=== PATIENT | male | born 1955 | race Caucasian/White ===

== ENCOUNTER → 2023-10-05 10:36 | Outpatient (BNVA) | payer MEDICARE, OTHER, SELFPAY | PROVIDERS: Referring Provider Family Medicine; Visit Provider Anesthesiology Pain Medicine | DX: M54.16 Radiculopathy, lumbar region (principal) | CPT/HCPCS: 72110 ==

== ENCOUNTER 2023-10-24 08:22 | Outpatient (CLI) | payer MEDICARE, OTHER, SELFPAY ==
--- NOTE | 2023-10-24 08:45 | MR_ITS ---
WS: [id number] MRI LUMBAR SPINE NONCONTRAST TECHNIQUE: Sagittal T1, T2 and STIR imaging. Axial T1 and T2 imaging. CLINICAL INFORMATION: M54.16 - Radiculopathy, lumbar region COMPARISON: None. FINDINGS: Mild lumbar curve. No acute compression. Slight retrolisthesis L2 on L3 and L3 on L4. L1-L2: Mild annular bulging. Moderate facet arthropathy with narrowing of the RIGHT subarticular rece ss. Spinal canal and foramen are patent. L2-L3: Slight retrolisthesis. Mild annular bulging with mild central canal stenosis. Moderate facet a rthropathy. LEFT facet effusion. Narrowing of the subarticular recess LEFT greater than RIGHT. LEFT f oraminal protrusion with severe LEFT foraminal narrowing. RIGHT foramen is patent. L3-L4: Mild annular bulging. Mild central canal stenosis. Narrowing of the subarticular recess bilate rally. Moderate facet arthropathy. RIGHT eccentric annular fissure. Small bilateral foraminal protrus ions with mild bilateral foraminal narrowing. L4-L5: Mild annular bulging. Narrowing subarticular recess bilaterally. Moderate facet arthropathy. M oderate LEFT and mild RIGHT foraminal narrowing. L5-S1: Mild disc bulging with osteophytic ridging. Moderate to severe RIGHT and mild LEFT foraminal n arrowing. Moderate facet arthropathy. Contact of the RIGHT S1 nerve root. Incidental hemangioma T12 vertebral body. Visualized pelvic bony structures: Normal. Paravertebral soft tissues: Normal. IMPRESSION: 1. Mild lumbar curve. No acute compression. 2. Mild central canal stenosis L2-L3 L3-L4 and L4-L5 due to disc bulging with facet arthropathy and ligamentum flavum hypertrophy. Narrowing of the subarticular recess at these levels. 3. Severe LEFT L2-3 and moderate to severe RIGHT L5-S1 foraminal narrowing. 4. Moderate facet arthropathy L2-L5. 5. Moderate LEFT L4-5 foraminal narrowing.
== END 2023-10-24 08:23 | disposition home or self-care (01) ==
LOC: RAD 08:24
PROVIDERS: PCP Family Medicine; Visit Provider Anesthesiology Pain Medicine
DX: M47.26 Other spondylosis with radiculopathy, lumbar region (principal); M48.07 Spinal stenosis, lumbosacral region; M51.16 Intervertebral disc disorders with radiculopathy, lumbar region
CPT/HCPCS: 72148

== ENCOUNTER → 2023-11-07 09:38 | Outpatient (BNVA) | payer MEDICARE, OTHER, SELFPAY | PROVIDERS: PCP Family Medicine; Visit Provider Anesthesiology Pain Medicine | DX: M51.16 Intervertebral disc disorders with radiculopathy, lumbar region; M47.816 Spondylosis without myelopathy or radiculopathy, lumbar region; M48.061 Spinal stenosis, lumbar region without neurogenic claudication | CPT/HCPCS: 99214 ==

== ENCOUNTER 2023-12-11 10:42 | Outpatient (CLI) | payer MEDICARE, OTHER, SELFPAY ==
--- NOTE | 2023-12-11 11:00 | MR_ITS ---
WS: [id number] MRI CERVICAL SPINE NONCONTRAST HISTORY: M54.12 - Radiculopathy, cervical region COMPARISON: None available. Technique: Multiplanar, multisequence noncontrast imaging of the cervical spine. Normal cervical alignment with no compression fracture or significant disc space narrowing. Signal within the cervical cord is normal. There is a well-circumscribed cystic mass centered in the region of the sella turcica measuring 1.2 cm in diameter. Craniocervical junction, C1 and C2 relationship, odontoid process and soft tissues are normal. C2-C3: Normal. C3-C4: Small foraminal osteophytes, RIGHT greater than LEFT. No central stenosis. Mild RIGHT foramina l stenosis. C4-C5: Mild osteophytic ridging with annular disc bulging and mild facet arthritis. Mild encroachment upon the ventral thecal sac. There is mild central and bilateral foraminal stenosis. C5-C6: Mild annular disc bulging with osteophytic ridging and facet arthritis. No disc protrusions.. Mild central and bilateral foraminal stenosis. C6-C7: Mild annular disc bulging with mild facet arthritis and small foraminal osteophytes. No centra l stenosis. Mild to moderate bilateral foraminal stenosis, LEFT greater than RIGHT due to osteophyte disease and disc disease. C7-T1: Small foraminal osteophytes. Paraspinal soft tissue are normal. IMPRESSION: 1. No high-grade central stenosis. 2. C6-7: Mild to moderate bilateral foraminal stenosis, LEFT greater than RIGHT due to disc and oste ophyte disease. 3. Mild central and bilateral foraminal stenosis at C4-5 and C5-6. 4. Mild RIGHT foraminal stenosis at C3-4 due to osteophyte. 5. Cystic mass is well-circumscribed measuring 1.2 cm in the sella turcica. Consider follow-up MRI b rain with pituitary imaging, with and without contrast.
== END 2023-12-11 10:43 | disposition home or self-care (01) ==
LOC: RAD 10:42
PROVIDERS: PCP Family Medicine; Visit Provider Anesthesiology Pain Medicine
DX: M54.12 Radiculopathy, cervical region (principal); M48.02 Spinal stenosis, cervical region; G93.0 Cerebral cysts
CPT/HCPCS: 72141

== ENCOUNTER → 2023-12-19 11:13 | Outpatient (BNVA) | payer MEDICARE, OTHER, SELFPAY | PROVIDERS: PCP Family Medicine; Visit Provider Anesthesiology Pain Medicine | DX: M48.02 Spinal stenosis, cervical region (principal); M25.552 Pain in left hip; G89.29 Other chronic pain | CPT/HCPCS: 73502; 99214 ==

== ENCOUNTER → 2024-02-20 09:25 | Outpatient (BNVA) | payer MEDICARE, OTHER, SELFPAY | PROVIDERS: PCP Family Medicine; Visit Provider Anesthesiology Pain Medicine | DX: M47.816 Spondylosis without myelopathy or radiculopathy, lumbar region (principal); M51.16 Intervertebral disc disorders with radiculopathy, lumbar region; M54.2 Cervicalgia; G89.29 Other chronic pain | CPT/HCPCS: 99214 ==